=== PATIENT | female | born 1945 | race Caucasian/White ===

== ENCOUNTER 2016-06-02 10:09 | Inpatient (IN) | payer MEDICARE, BC ==
--- NOTE | 2016-05-04 11:30 | NUR ---
FACE TO FACE INTERVIEW WITH PATIENT. PMH, MEDS, ALLERGIES REVIEWED DOCUMENTED, INSTRUCTIONS GIVEN DOCUMENTED AND HANDOUTS IN THE FORM OF 'MEDS TO DC PRIOR TO SURGERY', CONSENT FOR JOINT REPLACEMENT, LETTER FROM DR MULLIGAN, INFORMATION FOR SHOWERING 4 DAYS BEFORE SURGERY, AND SURGERY/ANESTHESIA PAMPHLET GIVEN TO PATIENT. Pamela GARCÍA'S CONTACT INFORMATION INCLUDED IF PATIENT HAS QUESTIONS.
--- NOTE | 2016-05-19 16:36 | NUR ---
JOINT REPLACEMENT PREOP CLASS PATIENT ATTENDED JOINT REPLACEMENT PREOP CLASS. CASE MANAGEMENT CONTACT INFORMATION PROVIDED. EDUCATION WAS PROVIDED REGARDING WHAT TO EXPECT BEFORE, DURING AND AFTER SURGERY. INCLUDING: OVERVIEW OF ANATOMY AND PHYSIOLOGY HOSPITAL TREATMENT SCHEDULE THERAPY DEMONSTRATION CASE MANAGEMENT RESPONSIBILITIES DISCHARGE PLANNING EQUIPMENT NEEDS JOINT REPLACEMENT WORKBOOK ANTI-COAGULATION SURGERY STRONG NUTRITIONAL PROTOCOL DISCHARGE INSTRUCTIONS [facility] [place] PATIENT PORTAL, WITH INSTRUCTIONS CJR AND PREOP SURVERY PREOP BATHING- CHG GIVEN ALL PATIENT'S QUESTIONS ANSWERED TO THEIR SATISFACTION. PATIENTS AND COACHES ENCOURAGED TO CALL WITH ANY ADDITIONAL QUESTIONS OR CONCERNS. CM FOLLOWING FOR TRANSITIONAL CARE PLANNING NEEDS DURING HOSPITALIZATION.
[2016-06-02] VITALS (22 sets, daily range): BP systolic 102–167; BP diastolic 60–76; PULSE 69–95; RESP 14–18; TEMP 96.1–97.9; O2SAT 94–99; Ht 167.6 cm; Wt 77.6 kg
[~2016-06-02] VITALS: Ht 167.6 cm; Wt 77.6 kg
--- OUTSIDE RECORDS SUMMARY | 2016-06-02 09:44 | XMS REPORT ---
Author Author Analia Shin Organization [employer] Address Unknown Phone Unavailable Care Team Providers Care Experienced Truck Driver Name Role Phone Analia Shin CP Unavailable Allergies No Known Allergies Problems Problem Type Condition ICD-9 Code Onset Dates Condition Status Problem Postmenopausal bleeding 627.1 Active Assessment Personal History Colon Polyps V12.72 Active Problem Allergic rhinitis due to allergen 477.8 Active Medications No Known Medications Vital Signs Date/Time: May 30, 2010 Height 65.50 inches Weight 152 lbs Blood Pressure Systolic 162 mm Hg Cardiac Monitoring Heart Rate 76 Beats per Minute Respiratory Rate 16 per Minute Blood Pressure Diastolic 92 mm Hg Results No Known Results Summary Purpose [employer] Submission
--- OUTSIDE RECORDS SUMMARY | 2016-06-02 09:44 | XMS REPORT | Continuity of Care Document ---
Author Author [facility] Organization [facility] Address Unknown Phone Unavailable Allergies Active Description Code Type Severity Reaction Onset Reported/Identified Relationship to Patient Clinical Status Yes Sulfa (Sulfonamide Antibiotics) Sulfa (Sulfonamide Antibiotics) Drug Allergy Unknown SORES ON MOUTH 03/15/2011 Medications Problems Date Dx Coded Attending Type Code Diagnosis Diagnosed By 05/27/2012 Shannon LAUREANO, Radha Montoya 719.41 JOINT PAIN-SHLDER Procedures Results Encounters ACCT No. Visit Date/Time Discharge Status Pt. Type Provider Facility Loc./Unit Complaint [id number] 07/23/2013 12:11:00 2013 13:23:00 DIS Emergency Secrist Aurelio PERRY [facility]EDW [id number] 07/03/2012 12:29:00 2012 12:29:00 DIS Outpatient Shannon LAUREANO, Radha Nuñez [facility] NADIA [id number] 05/27/2012 10:15:00 2012 10:15:00 DIS Outpatient Radha Ortega MD [facility] RIANNA
--- OUTSIDE RECORDS SUMMARY | 2016-06-02 09:44 | XMS REPORT ---
Author Author Analia Shin Organization [employer] Address Unknown Phone Unavailable Care Team Providers Care Medical Research Scientist Name Role Phone Analia Shin CP Unavailable Allergies No Known Allergies Problems Problem Type Condition ICD-9 Code Onset Dates Condition Status Problem Postmenopausal bleeding 627.1 Active Problem Allergic rhinitis due to allergen 477.8 Active Medications Medication Code System Code Instructions Start Date End Date Status Dosage Reglan MULTUM 949 10 mg orally prior to bowel prep Feb 13, 2013 Active 1 tab(s) Vital Signs Date/Time: May 30, 2010 Height 65.50 inches Weight 152 lbs Blood Pressure Systolic 162 mm Hg Cardiac Monitoring Heart Rate 76 Beats per Minute Respiratory Rate 16 per Minute Blood Pressure Diastolic 92 mm Hg Results No Known Results Summary Purpose [employer] Submission
--- OUTSIDE RECORDS SUMMARY | 2016-06-02 09:44 | XMS REPORT ---
Author Author Analia Shin Organization [employer] Address Unknown Phone Unavailable Care Team Providers Care Shellfish Farming Supervisor Name Role Phone Analia Shin CP Unavailable Allergies No Known Allergies Problems Problem Type Condition ICD-9 Code Onset Dates Condition Status Problem Postmenopausal bleeding 627.1 Active Problem Hypoparathyroidism 252.1 Active Problem Allergic rhinitis due to allergen 477.8 Active Assessment Personal history of colonic polyps Z86.010 Active Medications No Known Medications Results No Known Results Summary Purpose [employer] Submission
--- OUTSIDE RECORDS SUMMARY | 2016-06-02 09:44 | XMS REPORT ---
Author Author Analia Shin Organization [employer] Address Unknown Phone Unavailable Care Team Providers Care Theatre Instructor Name Role Phone Analia Shin CP Unavailable [...]
--- OUTSIDE RECORDS SUMMARY | 2016-06-02 09:46 | XMS REPORT | Continuity of Care Document ---
Author Author [facility] Organization [facility] Address Unknown Phone Unavailable Allergies Active [...] Status Pt. Type Provider Facility Loc./Unit Complaint [id number] 07/23/2013 12:11:00 2013 13:23:00 DIS Emergency Secrist Aurelio PERRY [facility] [id number] 07/03/2012 12:29:00 2012 12:29:00 DIS Outpatient Shannon LAUREANO, Radha Nuñez [facility] NADIA [id number] 05/27/2012 10:15:00 2012 10:15:00 DIS Outpatient Radha Ortega MD [facility] RIANNA
[~2016-06-02 10:09] MED LIST: ACETAMINOPHEN 500 MG TABLET PO ONE; ASPI81TA2 PO; CALC-898 PO; CEFAZOLIN 2 GM VIAL IV ONE; CETI10CA19 PO; DEXAMETHASONE 4mg/ml - 1ml INJECTION IV ONE; EPINEPHRINE 0.25 MG, BUPIVACAINE 0.25% 75 MG, MORPHINE SULFATE 15 MG in NORMAL SALINE 3... INJ ONE; FAMOTIDINE 20mg IVPB 50 ML IV ONE; LEVO75TA10 PO; LIDOCAINE 1% (10mg/ml) 2ml SDV SQ ONE; LISI1TAB9 PO; LR 1,000 ML IV SCH; MELOXICAM 15 MG TABLET PO ONE; METOCLOPRAMIDE 10mg/2ml INJECTION IV ONE; MULT-1243 PO; NOZIN NASAL SWAB NS ONE; ONDANSETRON 4mg/2ml INJECTION IV ONE; SIMV20TA6 PO; TRANEXAMIC ACID 1,000 MG in NORMAL SALINE 100 ML IV ONE
--- OUTSIDE RECORDS SUMMARY | 2016-06-02 10:13 | XMS REPORT | Continuity of Care Document ---
Author Author [facility] Organization [facility] Address Unknown Phone Unavailable Allergies Active Description [...] Status Pt. Type Provider Facility Loc./Unit Complaint [id number] 07/23/2013 12:11:00 2013 13:23:00 DIS Emergency Secrist Aurelio PERRY [facility] [id number] 07/03/2012 12:29:00 2012 12:29:00 DIS Outpatient Shannon LAUREANO, Radha Nuñez [facility] NADIA [id number] 05/27/2012 10:15:00 2012 10:15:00 DIS Outpatient Radha Ortega MD [facility] RIANNA
[2016-06-02] MEDS ORDERED: DOCU-168 PO (10:30)
[2016-06-02 10:35] LABS: ANION GAP 10 MEQ/L (5-15); BUN/CREATININE RATIO 29 RATIO (6-26); CALCIUM 9.5 MG/DL (8.4-10.2); CHLORIDE 104 MEQ/L (98-107); CO2 - CARBON DIOXIDE 29 MEQ/L (22-30); CREATININE 0.8 MG/DL (0.7-1.2); GLOMERULAR FILTRATION RATE 70; GLUCOSE 99 MG/DL (65-110); POTASSIUM 4.2 MEQ/L (3.6-5); SODIUM 143 MEQ/L (134-144)
--- NOTE | 2016-06-02 11:45 | ANESPREOP ---
Anesthesia Record Date and Time DATE: 06/02/16 TIME: 11:40 Pre-Op Diagnosis sever OA Left Knee Proposed Surgical Procedure Lt TKA Allergies: Coded Allergies: Sulfa (Sulfonamide Antibiotics) (Verified Allergy, Intermediate, BLISTERS IN THE MOUTH, 06/02/16) Ht/Wt/BMI Height: 5 ' 6.00 " Weight: 71.200 kg BMI: 25.3 kg/m2 Vital Signs Date Time Temp Pulse Resp B/P Pulse Ox O2 Delivery O2 Flow Rate FiO2 06/02/16 09:54 97.9 72 14 146/67 97 Room Air Medications Inpatient Medications Current Medications Medications (Trade) Dose Ordered Sig/Stoney Start Time Stop Time Status Last Admin Dose Admin Lactated Ringer's (Lactated Ringers) 1,000 ml @ 50 mls/hr Q20H 06/02/16 07:00 06/02/16 10:56 50 MLS/HR Aspirin (Aspirin) 81 Mg Tab.chew, 1 TAB PO DAILY, (Reported) Last Taken: on 05/26/16 Calcium Carb & Cit/Vitamin D3 (Citracal + D ER Tablet) 1 Each Tablet.er, 2 TAB PO DAILY, (Reported) Last Taken: on 06/01/162199 Cetirizine HCl (Zyrtec) 10 Mg Capsule, 1 CAP PO DAILY, (Reported) Last Taken: on 06/01/162199 Docusate Sodium (Colace) 100 Mg Capsule, 1 CAP PO BID, (Reported) Last Taken: on 06/01/162199 Levothyroxine Sodium (Levothyroxine Sodium) 75 Mcg Tablet, 75 MCG PO ACB, (Reported) Once daily before breakfast. Last Taken: on 06/01/16 0800 Lisinopril/Hydrochlorothiazide (Lisinopril- Hctz 10-12.5 mg Tab) 1 Each Tablet, 1 TAB PO DAILY, (Reported) Last Taken: on 06/01/16 0800 Multivits-Min/FA/Lycopene/Lut (Centrum Silver Tablet) 1 Each Tablet, 1 TAB PO DAILY, (Reported) Last Taken: on 05/26/16 Simvastatin (Simvastatin) 20 Mg Tablet, 20 MG PO HS , (Reported) Take 1 tablet, by mouth, 1 time a day (at BEDTIME). Last Taken: on 06/01/162199 Currently on Beta Scott: No Medical/Surgical History Anesthesia PMH: Reports: *Hypertension, Arthritis (OA - LT KNEE AND HANDS), Clotting Problems, Thyroid Disease (HYPOTHRYOID), Denies: *Diabetes, Anesthesia Reactions (NO KNOWN AIRWAY ISSUES), CHF, Cancer, Glaucoma, Malignant Hyperthermia, Renal Disease, Sleep Apnea Smoking Status: Never smoker Has pt. smoked today?: No Use Chewing Tobacco?: No Second Hand Exposure: No Substance Use Type: does not use Alcohol Intake: none HX of Last Menstrual Period: POST MENOPAUSE Past Surgical History Orthopedic Surgeries: Abdominal Surgeries: Genitourinary Surgeries: Cardiac Surgeries: Endocrine Surgeries: Reproductive Surgeries: Yes - BREAST IMPLANT; TUBAL LIGATION; Exc Uterine Polyp Neurological Surgeries: Ear Surgeries: Nose Surgeries: Throat Surgeries: Yes - TONSILS AGE 1 Other Surgeries: Yes - COLONOSCOPY Anesthesia Adverse Reactions: FOUND none Family Hx of Anesthesia Advers: none Hx of Motion Sickness: No Pertinent Findings Laboratory Tests 06/02/16 10:19 EKG Rhythm: Sinus Rhythm Physical Exam Respiratory: Bilat breath sounds equal, Lungs clear Cardiovascular: FOUND Regular rate, rhythm, FOUND No murmur Airway Assessment Mallampati Score: II TMD: 2 Fingerbreadths Overall Assessment: May Be Diff Intubation ASA: 2 Plan Regional: Spinal Discussion Discussed risks/options/alternatives of anesthesia and questions answered. Patient consents. Nursing pain assessment noted. Present: Family Member, Friend Attestation Statement Prior to the delivery of any anesthetic medication, I examined the patient, developed the plan, obtained the patient's consent and discussed the risk and benefits of the procedure with the patient/guardian. BANDAR GARCIA CRNA Jun 02, 2016 11:44
[2016-06-02] MEDS ORDERED: VANCOMYCIN 1 GRAM INJECTION ONE (11:48)
[2016-06-02] MEDS ORDERED: FENTANYL 100mcg/2ml INJECTION ONE (11:57)
[2016-06-02] MEDS ORDERED: MIDAZOLAM 2mg/2ml INJECTION ONE (11:57)
[2016-06-02] MEDS ORDERED: PROPOFOL 500mg 50 ML IV ONE (12:10)
[2016-06-02] MEDS ORDERED: KETAMINE 500mg/10ml INJECTION ONE (12:11)
[2016-06-02] MEDS ORDERED: ROPIVACAINE 0.5% (5mg/ml) 30ml INJ ONE (13:28)
--- NOTE | 2016-06-02 13:38 | PDOPERATE ---
Operative Report Date of Operation 06/02/16 Side: Left Preoperative Diagnosis: knee primary DJD Postoperative Diagnosis Same as preoperative diagnosis. Operation/Procedure: total knee arthroplasty (left) Surgeon Randa Joya MD [employer] FLORIDALMA Joe Complications None. Regional Block: Spinal Estimated Blood Loss See Anesthesia Record. Fluids Please See Anesthesia Record. Description of Operation Ms. Jack and her left knee were identified and marked in the the preoperative holding area. She was then brought back to the operating suite and proper anesthesia was administered. She was then positioned supine on the operating table. The left lower extremity was then prepped and draped in my normal sterile fashion. Timeout was performed with all operating room personnel. The leg was exsanguinated and tourniquet inflated 250 mmHg. A medial anterior incision followed by a medial arthrotomy was performed. Evaluation of the cartilage was undergone. Should full thickness loss in the medial femoral condyle and medial tibial plateau. Lateral compartment looked good with some minor scuffing of the medial femoral condyle. She did have full-thickness bone loss in the trochlea and for this reason I did convert to a total knee replacement. The skin incision was extended and a sub-vastus approach was utilized. A distal femoral cut was made in 5 of valgus using intramedullary guide. The femur was sized at a 3 and rotation set using the epicondylar axis. Distal femoral cuts were performed. A proximal tibial cut was made using extramedullary guide. Remaining osteophytes and meniscus were removed. Gaps were checked and they were well balanced and rectangular. Trial components were placed with a 9 mm spacer. This allowed for full range of motion and the patella tracked well. The knee was stable throughout range of motion. The patella was resurfaced with the knee in extension to a size 29. The tibia rotation was then marked and the tibia stamped at the proper rotation at a size 3. The bone was prepared for cementing and all components cemented into place and allowed to cure in extension. Betadine solution was used for 3 minutes during the curing period and then fully irrigated out with 1 L of normal saline. The tourniquet was deflated and hemostasis obtained with electrocautery. After the cement had cured the knee was taken through range of motion check for balance and stability which were good. Vancomycin powder was placed into the wound. The arthrotomy was closed with #1 Vicryl. The remainder of the wound was then closed by my hospital medical assistant utilizing 2-0 vycral in the subcutaneous tissue. 4-0 monocryl was used in the subcuticular layer followed by dermabond and a sterile dressing. After closure the patient will be transferred to the recovery room under the care of anesthesia. JARROD JOYA MD Jun 02, 2016 13:38
[2016-06-02] MEDS ORDERED: NOZIN NASAL SWAB NS ONE (14:00)
[2016-06-02] MEDS ORDERED: METOCLOPRAMIDE 10mg/2ml INJECTION IV PRN (14:00)
[2016-06-02] MEDS ORDERED: NAPROXEN 220 MG TABLET PO PRN (14:00)
[2016-06-02] MEDS ORDERED: SENNOSIDES 8.6 MG TABLET PO PRN (14:00)
[2016-06-02] MEDS ORDERED: LORAZEPAM 1 MG TABLET PO PRN (14:00)
[2016-06-02] MEDS ORDERED: PRN ORDERS MC (14:00)
[2016-06-02] MEDS ORDERED: ONDANSETRON 4mg/2ml INJECTION IV PRN (14:00)
[2016-06-02] MEDS ORDERED: DiphenhydrAMINE 25 MG CAPSULE PO PRN (14:00)
[2016-06-02] MEDS ORDERED: DiphenhydrAMINE 50 MG/ML INJECTION IV PRN (14:00)
--- NOTE | 2016-06-02 14:13 | ANESPO ---
Post-Op Note Date 06/02/16 Time: 14:13 Status Pt Participated in Evaluation: Pt participated in person Vital Signs Date Time Temp Pulse Resp B/P Pulse Ox O2 Delivery O2 Flow Rate FiO2 06/02/16 09:54 97.9 72 14 146/67 97 Room Air Respiratory Function: Airway patent, Regular respirations Cardiovascular Function: Regular pulse Telemetry Pattern: SR Mental Status: Alert/oriented Pain Level Intensity: 0 Unable to Assess Pain Due To: pre-op order Hydration: IV infusing Complications during Recovery None apparent Follow-Up Instructions Instructions Per Surgeon BANDAR GARCIA CRNA Jun 02, 2016 14:13
--- NOTE | 2016-06-02 14:13 | ANESPD ---
Peripheral Nerve Blockade Physician: Nguyễn Joya MD Date: 06/02/16 Surgical Procedure: Left TKA Discussion Discussed risks/options/alternatives of anesthesia and questions answered. Patient consents. Nursing pain assessment noted. Block Start: 14:05 Block Stop: 14:08 Block Employed: Adductor Canal Indication: post-operative pain Approach: left side confirmed Position: supine Patient: Consent, risks/benefits discussed, Informed, post block act. discussed Monitors: EKG, SpO2, NIBP IV Sedation: No Sedation: Awake Initial Vital Signs First Documented Vital Signs Date Time Temp Pulse Resp B/P Pulse Ox O2 Delivery O2 Flow Rate FiO2 06/02/16 09:54 97.9 72 14 146/67 97 Room Air Post Vital Signs Vital Signs Date Time Temp Pulse Resp B/P Pulse Ox O2 Delivery O2 Flow Rate FiO2 06/02/16 09:54 97.9 72 14 146/67 97 Room Air Initial Pain Score: 0 Post Block Score: 0 Prep: chlorhexadine/ETOH Ultrasound Used?: Yes Nerve Simulator Parathesia/Pain: none Injectate Ropivacaine (%): 0.5 Ropivacaine (mL): 15 Was Epi 1:200,000 Used?: No Injection Injection made incrementally with constant monitoring and aspiration every [5] ml. BANDAR GARCIA CRNA Jun 02, 2016 14:12
--- NOTE | 2016-06-02 14:29 | DI ---
Indication: ITS.REASON: POSTOP left knee replacement PROCEDURE: KNEE LEFT 2 VIEW: Encounter: Initial Comparison: None Findings: Postoperative changes of left total knee replacement are seen. There is expected postoperative subcutaneous gas. No evidence of hardware failure or acute fracture. No retained radiopaque surgical instruments or sponges. Overlying material causing artifact. Impression: New left total knee prosthesis without evidence of immediate complication. .
--- NOTE | 2016-06-02 14:35 | NUR ---
ARRIVED TO THE FLOOR PT ARRIVED TO THE FLOOR AT THIS TIME. PT ALERT AND ORIENTED X3. VITAL SIGNS STABLE, ON RA. PT ABLE TO TRANSFER SELF FROM THE CART TO THE BED WITH MINIMAL ASSIST. NO CONCERNS NOTED. DENIES PAIN AT THIS TIME, WILL CONTINUE TO MONITOR.
--- OUTSIDE RECORDS SUMMARY | 2016-06-02 14:49 | XMS REPORT | Continuity of Care Document ---
Author Author [facility] Organization [facility] Address Unknown Phone Unavailable Allergies Active Description [...] Status Pt. Type Provider Facility Loc./Unit Complaint [id number] 07/23/2013 12:11:00 2013 13:23:00 DIS Emergency Secrist Aurelio PERRY [facility] [id number] 07/03/2012 12:29:00 2012 12:29:00 DIS Outpatient Shannon LAUREANO, Radha Nuñez [facility] NADIA [id number] 05/27/2012 10:15:00 2012 10:15:00 DIS Outpatient Radha Ortega MD [facility] RIANNA
[2016-06-02] MEDS: NORMAL SALINE 1,000 ML IV SCH (14:56)
[2016-06-02] MEDS: NOZIN NASAL SWAB NS SCH ×2 (14:56→22:03)
[2016-06-02] MEDS: OXYCODONE I.R. 5 MG TABLET PO PRN ×3 (15:32→22:19)
[2016-06-02] MEDS: ACETAMINOPHEN 325 MG TABLET PO SCH ×2 (16:46→22:05)
--- NOTE | 2016-06-02 19:56 | NUR ---
PROGRESS NOTE PT IS ALERT AND ORIENTED X3. VITAL SIGNS STABLE, ON RA. PT IS UP X1 ASSIST WITH GAITBELT AND WALKER. THE PT WAS WORKING WITH PHYSICAL THERAPY ON GETTING OUT OF BED FOR THE FIRST TIME THIS AFTERNOON AND WAS INCONTINENT OF URINE WHILE AMBULATING TO THE BATHROOM DUE TO DECREASED SENSATION. AT THIS TIME, PT HAS FULL SENSATION IN HER LOWER EXTREMITIES AND HAD A STEADY GAIT. THE PT WAS ASSISTED WITH CLEANING UP AND CHANGING INTO HER OWN CLOTHING AND BEGAN TO FEEL FAINT. PT WAS WALKED BACK TO BED BY PHYSICAL THERAPY AND THIS RN. PT'S BLOOD PRESSURE WAS 90S/60S AT THIS TIME. PT'S BLOOD PRESSURE WAS RECHECKED WITHIN 5 MINUTES AND HAD REACHED BASELINE. THE PT HAS TOLERATED A REGULAR DIET WELL. THE PT IS RESTING IN THE RECLINER WITH SCDS AND POLAR TRUDY IN PLACE, FAMILY PRESENT IN THE ROOM. NO OTHER CONCERNS NOTED.
[2016-06-02] MEDS ORDERED: SENNOSIDES 8.6 MG TABLET PO SCH (22:00)
[2016-06-02] MEDS ORDERED: SIMVASTATIN 20 MG TABLET PO SCH (22:00)
[2016-06-02] MEDS: CEFAZOLIN 2 G in NORMAL SALINE 100 ML IV SCH (22:03)
[2016-06-02] MEDS: ASPIRIN *EC* 325mg TABLET PO SCH (22:05)
[2016-06-03 01:10] VITALS: BP 87/56; PULSE 75; RESP 16; TEMP 97.6; O2SAT 93
[2016-06-03 01:15] VITALS: BP 100/59
--- NOTE | 2016-06-03 01:24 | NUR ---
order pts bp 87/56, when rechecked was 100/59. Also reported 1.5 sec pause on telemetry. guera ordered to increased NS to 125ml/hr and put telemetry strip on chart. will continue to monitor.
[2016-06-03] MEDS: NORMAL SALINE 1,000 ML IV SCH ×2 (02:08→03:23)
--- NOTE | 2016-06-03 03:48 | NUR ---
Chart Check 24 hour chart check completed
[2016-06-03 04:05] VITALS: BP 116/67; PULSE 76; RESP 16; TEMP 97.4; O2SAT 96
[2016-06-03] MEDS: NOZIN NASAL SWAB NS SCH ×2 (05:15→14:00)
[2016-06-03] MEDS: CEFAZOLIN 2 G in NORMAL SALINE 100 ML IV SCH (05:16)
[2016-06-03 05:36] LABS: HCT - HEMATOCRIT 33.8 % (36-46); HGB - HEMOGLOBIN 10.8 GM/DL (12-16); MEAN CORPUSCULAR HGB 28.4 UUG (26-34); MEAN CORPUSCULAR VOLUME 88.9 UM3 (80-100); MEAN PLATELET VOLUME 12.2 UM3 (9.4-12.4); RED BLOOD COUNT 3.8 M/MM3 (4.00-5.20); WBC - WHITE BLOOD COUNT 10.7 T/MM3 (4.5-11.0)
[2016-06-03 05:44] LABS: ANION GAP 7 MEQ/L (5-15); BUN/CREATININE RATIO 21 RATIO (6-26); CALCIUM 8.8 MG/DL (8.4-10.2); CHLORIDE 104 MEQ/L (98-107); CO2 - CARBON DIOXIDE 29 MEQ/L (22-30); CREATININE 0.9 MG/DL (0.7-1.2); GLOMERULAR FILTRATION RATE 61; GLUCOSE 109 MG/DL (65-110); POTASSIUM 4.1 MEQ/L (3.6-5); SODIUM 140 MEQ/L (134-144)
[2016-06-03] MEDS ORDERED: LEVOTHYROXINE 75 MCG TABLET PO SCH (06:30)
--- NOTE | 2016-06-03 06:36 | NUR ---
SHIFT SUMMARY PT SLEPT SOUNDLY THROUGHOUT THE NIGHT. PT GIVEN ALEVE AND ROXICODONE FOR PAIN, SEE EMAR FOR TIMES. DENIES N/V/SOA. UP WITH ASSIST X ONE, GB, AND WALKER TO BATHROOM. REGULAR DIET. NS RUNNING @ 125ML/HR IN RIGHT FOREARM. VSS, ON RA. AMBULATED IN HALLWAY LAST NIGHT. CONTINUOUS OXIMETRY. BILAT SCD'S. DRESSING TO LEFT KNEE C/D/I, POLAR PACK IN USE. BED LOCKED AND LOW, BED ALARM ON. CALL LIGHT WITHIN REACH. WILL CONTINUE TO MONITOR. FAMILY AT BEDSIDE.
[2016-06-03 07:26] VITALS: BP 110/63; PULSE 80; RESP 16; TEMP 96.4; O2SAT 98
[2016-06-03 07:28] VITALS: PULSE 80; RESP 18
--- NOTE | 2016-06-03 08:17 | PDORTHOPN ---
Subjective Date DATE: 06/03/16 TIME: 08:11 Subjective Pt is doing great this AM. She did not sleep well due to noises in the room. Pain is well controlled. Telemetry showed 1.5 second pause yesterday. Pt is not symptomatic and is not on a beta-kath. BPs were low overnight and IVF rate increased. Pressures are better this AM but will hold YADI inhibitor / HCTZ X 1. No concerns or problems reported. Objective Vital Signs Vital signs Vital Signs 06/02/16 06/03/16 06/03/16 06/03/16 20:36 01:10 01:15 04:05 Temp 96.9 97.6 97.4 Pulse 76 75 76 Resp 16 16 B/P 110/60 87/56 100/59 116/67 Pulse Ox 93 96 O2 Delivery Room Air Room Air 06/03/16 06/03/16 07:26 07:28 Temp 96.4 Pulse 80 80 Resp 16 18 B/P 110/63 Pulse Ox 98 O2 Delivery Room Air Height (Feet): 5 Height (Inches): 6.00 Weight (Kilograms): 77.600 General General Appearance: Alert, Well Developed, No Acute Distress Respiratory (Brief) Respiratory Brief: FOUND: non-labored Cardiovascular (Brief) Cardiac: FOUND: calf easily compressible, calf soft, nontender, pedal pulses intact Surgical Site Incision: FOUND: Mepilex dressing intact, no drainage Neurologic (Brief) Neurological Brief: FOUND: extremities w/o deficits, neuro intact Psychiatric (Brief) Psychiatric Brief: FOUND: alert, no acute distress Laboratory Laboratory Laboratory Tests 06/03/16 04:02 Laboratory Tests 06/02/16 10:19 06/03/16 04:02 Assessment & Plan Problems: (1) Degenerative arthritis of left knee Status: Chronic Qualifiers: Osteoarthritis type: primary Qualified Codes: M17.12 - Unilateral primary osteoarthritis, left knee Assessment & Plan: Pt is not symptomatic and has never seen a traffic operations manager. I discussed the telemetry pause with Arcelia JOSEPH and she recommends out pt follow up unless s/sx change. Aspirin protocol for VTE prophylaxis. SCD's and early mobilization for added DVT coverage. PT/OT services to improve independent function. Discharge Planning per Case Management. Hospital Course Summary Disclaimer The visit summary below is not to be considered part of the above Progress Note. GANESH HU Jun 03, 2016 08:14
[2016-06-03] MEDS: ASPIRIN *EC* 325mg TABLET PO SCH (08:32)
[2016-06-03] MEDS: ACETAMINOPHEN 325 MG TABLET PO SCH ×2 (08:34→13:32)
[2016-06-03] MEDS ORDERED: POLYETHYL.GLYCOL 3350 PACKET 17gm PO SCH (09:00)
[2016-06-03] MEDS ORDERED: CETIRIZINE 10 MG TABLET PO SCH (09:00)
[2016-06-03] MEDS ORDERED: DOCUSATE SODIUM 100 MG CAPSULE PO SCH (09:00)
[2016-06-03] MEDS ORDERED: LISINOPRIL/HCTZ 10mg/12.5mg TABLET PO SCH (09:00)
--- NOTE | 2016-06-03 09:00 | NUR ---
Vomit Pt vomited 200mls at this time. Pt stated "I had no nausea at all, it was just an all of a sudden kind of thing." Pt offered nausea medication at this time. Pt stated "I don't feel nauseous, I think it was the orange slices I ate for breakfast." Will continue to monitor. Pt encouraged to notify this RN if nausea or vomiting returns.
[2016-06-03] MEDS: OXYCODONE I.R. 5 MG TABLET PO PRN ×2 (10:45→14:00)
[2016-06-03 12:05] VITALS: BP 117/64; PULSE 73; RESP 14; TEMP 96.8; O2SAT 100
[2016-06-03] MEDS ORDERED: POLY17PO18 PO (13:14)
[2016-06-03] MEDS ORDERED: ASPI-917 PO (13:14)
[2016-06-03] MEDS ORDERED: ACET-2321 PO (13:14)
[2016-06-03] MEDS ORDERED: NAPR-1119 PO (13:14)
[2016-06-03] MEDS ORDERED: OXYC5TAB84 PO (13:14)
--- NOTE | 2016-06-03 13:23 | NUR ---
CM CM IN TO VISIT WITH PT. SHE IS ALERT AND ORIENTED. SHE PLANS TO RETURN HOME. SHE HAS FWW. SHE WILL DO OUTPT PT AT [facility]. P# [phone]. LACE SCORE IS 6. SHE IS GIVEN CM CONTACT INFORMATION. Addendum: 06/03/16 at 1324 by PRITI GOOD RN Amended: Links added.
--- NOTE | 2016-06-03 13:37 | DSPDOC ---
General Date Date DATE: 06/03/16 TIME: 13:35 Attending Physician Nguyễn Joya MD Admitting Physician Nguyễn Joya MD Consulting Physician Admitting Diagnosis PRIMARY DEGENERATIVE JOINT DISEASE LEFT KNEE Discharge Diagnosis Primary DJD left knee Procedures Left knee total knee arthroplasty Diagnosis Left knee primary DJD History of Present Illness HPI Elements This patient was admitted for elective surgical tx of end stage degenerative joint disease that failed to respond to conservative treatment. Further details of this is found in the admission H&P. Hospital Course After appropriate preoperative clearance and signing of operative consent, the patient was given IV antibiotics, according to orthopedic protocol. The patient was taken to the operating room and underwent elective joint arthroplasty. Following surgery, antibiotics were discontinued less than 24 hours according to joint protocol. Appropriate anticoagulants were initiated and SCDs added for DVT prevention. The dressing was clean, dry, and intact. Pain control was obtained via multimodal approach. Bowel motivation addressed with scheduled and PRN medications. Early mobilization was initiated through PT services. Discharge arrangements made by a collaborative effort between the patient and Case Management. Follow-up is scheduled in 2-3 weeks. Discharge instructions given by orthopedic providers and nursing staff at discharge. Discharge condition was good. Problems: (1) Degenerative arthritis of left knee Status: Chronic Assessment & Plan: Pt is not symptomatic and has never seen a swabber. I discussed the telemetry pause with Arcelia JOSEPH and she recommends out pt follow up unless s/sx change. Aspirin protocol for VTE prophylaxis. SCD's and early mobilization for added DVT coverage. PT/OT services to improve independent function. Discharge Planning per Case Management. Associated Postoperative Event: Acute P.O. Anemia Ongoing Care Required?: No Acute P.O. Anemia: Patient received IVF, No intervention required, HGB drop- acceptable range Laboratory Laboratory Tests Test 06/02/16 20:34 06/03/16 04:02 Glucometer 179mg/dL White Blood Count 10.7T/MM3 Red Blood Count 3.80M/MM3 Hemoglobin 10.8GM/DL Hematocrit 33.8% Mean Corpuscular Volume 88.9UM3 Mean Corpuscular Hemoglobin 28.4UUG Mean Corpuscular Hemoglobin Concent 32.0GM/DL RDW Standard Deviation 41.3FL Platelet Count 204T/MM3 Mean Platelet Volume 12.2UM3 Turbidity < 20 Sodium Level 140MEQ/L Potassium Level 4.1MEQ/L Chloride Level 104MEQ/L Carbon Dioxide Level 29MEQ/L Anion Gap 7MEQ/L Blood Urea Nitrogen 19.0MG/DL Creatinine 0.9MG/DL Glomerular Filtration Rate Calc 61 BUN/Creatinine Ratio 21RATIO Glucose Level 109MG/DL Calculated Osmolality 272MOSM/KG Calcium Level 8.8MG/DL Icterus Index < 2 Chemistry Specimen Hemolysis < 15 Home Meds Active Scripts Polyethylene Glycol 3350 (Healthylax) 17 Gm Powd.pack, 17 G PO DAILY, #30 PACKET Prov:AMRIK GOMEZ 06/03/16 Oxycodone HCl (Oxycodone HCl) 5 Mg Tablet, 5-15 MG PO Q3H Y for BREAKTHROUGH PAIN, #60 TAB Prov:AMRIK GOMEZ 06/03/16 Naproxen Sodium (Naproxen 220mg) 220 Mg Tablet, 440 MG PO BID Y for PAIN, #84 TAB Prov:AMRIK GOMEZ 06/03/16 Aspirin *EC* (Aspirin EC) 325 Mg Tablet.dr, 325 MG PO BID, #84 TAB Prov:AMRIK GOMEZ 06/03/16 Acetaminophen (Tylenol) 325 Mg Tablet, 650 MG PO QID, #100 TAB Prov:AMRIK GOMEZ 06/03/16 Reported Medications Docusate Sodium (Colace) 100 Mg Capsule, 1 CAP PO BID for STOOL SOFTENING 06/02/16 Simvastatin (Simvastatin) 20 Mg Tablet, 20 MG PO HS, TAB Take 1 tablet, by mouth, 1 time a day (at BEDTIME). 05/04/16 Lisinopril/Hydrochlorothiazide (Lisinopril-Hctz 10-12.5 mg Tab) 1 Each Tablet, 1 TAB PO DAILY, TAB 05/04/16 Levothyroxine Sodium (Levothyroxine Sodium) 75 Mcg Tablet, 75 MCG PO ACB, TAB Once daily before breakfast. 05/04/16 Cetirizine HCl (Zyrtec) 10 Mg Capsule, 1 CAP PO DAILY, CAP 05/04/16 Aspirin (Aspirin) 81 Mg Tab.chew, 1 TAB PO DAILY 05/04/16 Multivits-Min/FA/Lycopene/Lut (Centrum Silver Tablet) 1 Each Tablet, 1 TAB PO DAILY 05/04/16 Calcium Carb & Cit/Vitamin D3 (Citracal + D ER Tablet) 1 Each Tablet.er, 2 TAB PO DAILY 05/04/16 Discharge Disposition Please refer to Case Management Notes for patient's disposition. Estimated Blood Loss 50.0 AMRIK GOMEZ Jun 03, 2016 13:37
--- NOTE | 2016-06-03 14:23 | NUR ---
Discharge Pt discharged at this time via ambulatory status through the ER entrance in the company of an adult. IV catheter DC'd by JULIAN Loaiza. VS stable on RA. Wristband removed at discharge. Discharge packet and instructions gone over with Pt and family. This RN discussed medications, activity, diet, restrictions, and follow up appts with Pt. Pt verbalized understanding and had no further questions for this RN.
[2016-06-04] MEDS ORDERED: MILK OF MAGNESIA 30 ML SUSP PO SCH (08:00)
--- NOTE | 2016-06-04 14:37 | NUR ---
CM DID FOLLOW UP PHONE CALL WITH PATIENT, ASKED THE FOLLOWING QUESTIONS FOR DR MULLIGAN, SHE IS POST LEFT TKA. 1. PAIN AT REST: 1-2 2. PAIN WITH EXERTION: 3 3. ANTICOAGULATION: ASA 325MG BID 4. PAIN MED: TYLENOL 650MG QID AND OXY 5. BM: NO, HAS TAKEN COLACE BUT NOT THE HEALTHYLAX THAT WAS ORDERED DAILY. SHE WILL LOOK INTO THAT.
[2016-06-04] MEDS ORDERED: BISACODYL 10 MG SUPPOSITORY RECTALLY SCH (20:00)
== END 2016-06-03 14:23 | disposition home or self-care (01) | DRG 470 ==
LOC: SCU 10:09 → SRG 10:09 → EDSTATUS 12:45 → SRG 14:01 → SCU 14:01
PROVIDERS: ADMIT Orthopaedic Surgery; ATTEND Orthopaedic Surgery
PROC: 0SRD0J9 Replacement of Left Knee Joint with Synthetic Substitute, Cemented, Open Approach (ICD-10-PCS; principal; 2016-06-02 12:23)
DX: M17.12 Unilateral primary osteoarthritis, left knee (principal); D64.9 Anemia, unspecified; E03.9 Hypothyroidism, unspecified; E78.5 Hyperlipidemia, unspecified; J30.9 Allergic rhinitis, unspecified; R01.1 Cardiac murmur, unspecified; Z87.891 Personal history of nicotine dependence
CPT/HCPCS: 36415; 80048; 82948; 85027